=== PATIENT | female | born 1980 | race American Indian/Alaskan Native ===

== ENCOUNTER 2017-07-09 19:27 | Emergency (ER) | payer SELFPAY ==
[2017-07-09 19:47] VITALS: BP 165/99
--- NOTE | 2017-07-09 22:32 | Emergency Department Report ---
ED ENT HPI - General Chief complaint: Eye Problems Stated complaint: EYE SENSITIVE TO LIGHT/CANT HEAR Time Seen by Provider: 07/09/17 22:27 Source: patient Mode of arrival: Ambulatory Limitations: No Limitations - History of Present Illness Initial comments: 37-year-old female past medical history none presents with complaint of bilateral eye redness or some right than left. Some photophobia. Also states she has right-sided earache and has foreign body sensation in right ear. This has been going on for 1 month. I redness has been ongoing for 1 week. Some mucopurulent drainage from eyes and crusting in the mornings as per patient. Denies any direct trauma to his state is started on left than once her right eye and is currently worsening right eye. Burning itching sensation. Patient has been using Visine with minimal relief of her symptoms. Denies any cough fever chills nausea or vomiting. Denies any headache. Patient is awake alert and oriented 3 MD complaint: ear pain (right-sided earache for 1 month) Onset/Timin -: week(s) Location: R ear Severity: mild Severity scale (0 -10): 2 Quality: aching, dull Consistency: intermittent Improves with: none Worsens with: none - Related Data Previous Rx's Medication Instructions Recorded Last Taken Type Amoxicillin/Potassium Clav 1 each PO BID #14 tablet 07/09/17 Unknown Rx [Augmentin 875-125 Tablet] Ibuprofen [Motrin] 800 mg PO Q8HR PRN #20 tablet 07/09/17 Unknown Rx Ofloxacin 0.3% [Floxin Otic] 10 drops OT QDAY #1 bottle 07/09/17 Unknown Rx Tobramycin 0.3% [Tobrex] 1 drop OU Q4H #1 bottle 07/09/17 Unknown Rx Allergies Allergy/AdvReac Type Severity Reaction Status Date / Time No Known Allergies Allergy Unverified 07/09/17 19:45 ED Dental HPI - General Chief complaint: Eye Problems Stated complaint: EYE SENSITIVE TO LIGHT/CANT HEAR Time Seen by Provider: 07/09/17 22:27 Source: patient Mode of arrival: Ambulatory Limitations: No Limitations - Related Data Previous Rx's Medication Instructions Recorded Last Taken Type Amoxicillin/Potassium Clav 1 each PO BID #14 tablet 07/09/17 Unknown Rx [Augmentin 875-125 Tablet] Ibuprofen [Motrin] 800 mg PO Q8HR PRN #20 tablet 07/09/17 Unknown Rx Ofloxacin 0.3% [Floxin Otic] 10 drops OT QDAY #1 bottle 07/09/17 Unknown Rx Tobramycin 0.3% [Tobrex] 1 drop OU Q4H #1 bottle 07/09/17 Unknown Rx Allergies Allergy/AdvReac Type Severity Reaction Status Date / Time No Known Allergies Allergy Unverified 07/09/17 19:45 ED Review of Systems ROS: Stated complaint: EYE SENSITIVE TO LIGHT/CANT HEAR Other details as noted in HPI Constitutional: denies: chills, fever Eyes: eye pain, eye discharge. denies: vision change ENT: ear pain. denies: throat pain Respiratory: denies: cough, shortness of breath, wheezing Cardiovascular: denies: chest pain, palpitations Endocrine: no symptoms reported Gastrointestinal: denies: abdominal pain, nausea, diarrhea Genitourinary: denies: urgency, dysuria, discharge Musculoskeletal: denies: back pain, joint swelling, arthralgia Skin: denies: rash, lesions Neurological: denies: headache, weakness, paresthesias Psychiatric: denies: anxiety, depression Hematological/Lymphatic: denies: easy bleeding, easy bruising ED Past Medical Hx - Past Medical History Hx Hypertension: Yes - Surgical History Additional Surgical History: Hernia repair, C/S - Medications Home Medications: Home Medications Medication Instructions Recorded Confirmed Last Taken Type Amoxicillin/Potassium Clav 1 each PO BID #14 tablet 07/09/17 Unknown Rx [Augmentin 875-125 Tablet] Ibuprofen [Motrin] 800 mg PO Q8HR PRN #20 tablet 07/09/17 Unknown Rx Ofloxacin 0.3% [Floxin Otic] 10 drops OT QDAY #1 bottle 07/09/17 Unknown Rx Tobramycin 0.3% [Tobrex] 1 drop OU Q4H #1 bottle 07/09/17 Unknown Rx ED Physical Exam - General Limitations: No Limitations General appearance: alert, in no apparent distress - Head Head exam: Present: atraumatic, normocephalic - Eye Eye exam: Present: normal appearance, PERRL, EOMI Pupils: Present: normal accommodation - ENT ENT exam: Present: mucous membranes moist - Expanded ENT Exam Expanded TM/Canal exam: Erythema: Right TM, Bulging: Right TM (right tympanic membrane visible some surrounding erythema and bulging no visible tear and tympanic membrane. No mastoid tenderness on exam), Foreign Body: Right TM (earring stud lodged in right ear canal) - Neck Neck exam: Present: normal inspection - Respiratory Respiratory exam: Present: normal lung sounds bilaterally. Absent: respiratory distress - Cardiovascular Cardiovascular Exam: Present: regular rate, normal rhythm. Absent: systolic murmur, diastolic murmur, rubs, gallop - GI/Abdominal GI/Abdominal exam: Present: soft, normal bowel sounds - Extremities Exam Extremities exam: Present: normal inspection - Back Exam Back exam: Present: normal inspection - Neurological Exam Neurological exam: Present: alert, oriented X3, CN II-XII intact, normal gait - Psychiatric Psychiatric exam: Present: normal affect, normal mood - Skin Skin exam: Present: warm, dry, intact, normal color. Absent: rash ED Course Vital Signs 07/09/17 19:45 Temperature 98.4 F Pulse Rate 102 H Respiratory 18 Rate Blood Pressure 165/99 O2 Sat by Pulse 100 Oximetry - Foreign Body Removal Ear Location: ear canal (R) Foreign Body Suspected: other (earring stud) Foreign Body Removed: yes (earring stud fully removed) Tympanic Membrane Intact: Yes (no perforations of tympanic membrane) Patient Tolerated Procedure: well Complications: none (procedure tolerated well no pain no bleeding) ED Medical Decision Making - Medical Decision Making A/P: Foreign body removal right ear, conjunctivitis 1- tobramycin drops to affected eye(s), ofloxacin to right ear 2-course of Augmentin 7 days. I extracted full intact metal earring stud. No visible perforation to the tympanic membrane but there is surrounding erythema in the ear canal. No clinical signs of mastoiditis on exam, no mastoid erythema swelling or tenderness 3-Motrin when necessary 4-advised patient to return to the ED for any fevers chills difficulty hearing, drainage from ear nausea or vomiting. Critical care attestation.: If time is entered above; I have spent that time in minutes in the direct care of this critically ill patient, excluding procedure time. ED Disposition Clinical Impression: Foreign body in right ear Qualifiers: Encounter type: initial encounter Qualified Code(s): T16.1XXA - Foreign body in right ear, initial encounter Conjunctivitis Qualifiers: Conjunctivitis type: acute Acute conjunctivitis type: unspecified Laterality: bilateral Qualified Code(s): H10.33 - Unspecified acute conjunctivitis, bilateral Disposition: DC-01 TO HOME OR SELFCARE Is pt being admited?: No Does the pt Need Aspirin: No Condition: Stable Instructions: Conjunctivitis (ED), Ear Foreign Body (ED) Prescriptions: Amoxicillin/Potassium Clav [Augmentin 875-125 Tablet] 1 each PO BID #14 tablet Ibuprofen [Motrin] 800 mg PO Q8HR PRN #20 tablet PRN Reason: Pain Ofloxacin 0.3% [Floxin Otic] 10 drops OT QDAY #1 bottle Tobramycin 0.3% [Tobrex] 1 drop OU Q4H #1 bottle Referrals: [facility] [Provider Group] - 3-[address] [facility] [Outside] - 3-5 Days NEHA GONZALEZ MD [Staff Physician] - 3-5 Days Forms: Accompanied Note, Work/School Release Form(ED) Time of Disposition: 22:33
== END 2017-07-09 22:57 | disposition home or self-care (01) ==
LOC: ED 19:27
DX: T16.1XXA Foreign body in right ear, initial encounter (principal); H10.33 Unspecified acute conjunctivitis, bilateral; I10 Essential (primary) hypertension; X58.XXXA Exposure to other specified factors, initial encounter; Y93.89 Activity, other specified; Y99.8 Other external cause status; Y92.89 Other specified places as the place of occurrence of the external cause

== ENCOUNTER 2018-07-23 18:28 | Emergency (ER) | payer OTHER ==
[2018-07-23] MEDS ORDERED: ATROVENT IH ONE (19:05)
[2018-07-23] MEDS ORDERED: PROVENTIL IH ONE ×4 (19:05→21:34)
--- NOTE | 2018-07-23 19:05 | Emergency Department Report ---
Chief Complaint: Dyspnea/Respdistress Stated Complaint: KRISTEN/ASTHMA Time Seen by Provider: 07/23/18 19:03 - HPI History of Present Illness: pt has a hx of asthma has not had inhaler in 2-3 months due to lack of insurance exacerbation started last night dry cough SOB wheezing no fever (+) smoker MSE screening note: Focused history and physical exam performed. Due to findings the following was ordered: nebulizer tx, dexamethasone, CXR ED Disposition for MSE Condition: Stable
[2018-07-23] MEDS ORDERED: DECADRON IV ONE (19:06)
[2018-07-23] MEDS ORDERED: DUONEB *Not for PRN Use IH ONE ×2 (20:25→21:17)
[2018-07-23] MEDS ORDERED: XOPENEX IH ONE (20:57)
[2018-07-23] MEDS ORDERED: CATAPRES PO ONE (20:57)
[2018-07-23] MEDS ORDERED: APRESOLINE IV ONE (21:07)
[2018-07-23] MEDS ORDERED: SOLU-Medrol IV ONE (21:07)
[2018-07-23] MEDS ORDERED: NACL 0.9% 1000 ML 1,000 ML IV ONE (21:08)
--- NOTE | 2018-07-23 21:10 | Emergency Department Report ---
HPI - General Chief Complaint: Dyspnea/Respdistress Time Seen by Provider: 07/23/18 19:03 - HPI HPI: 38-year-old -[place] female presents to the emergency department with complaint of shortness of breath, wheezing, dry cough that she feels is an a sthma exacerbation. This is been going on since last night. She does not have any albuterol inhaler or nebulizer treatments. She also has a history of hypertension and does present with elevated blood pressure. She admits to medication noncompliance. She does not have a primary care physician. She is a tobacco smoker but denies any illicit drug use. No recent travel or sick contacts at home. ED Past Medical Hx - Past Medical History Hx Hypertension: Yes Hx Asthma: Yes - Surgical History Additional Surgical History: Hernia repair, C/S - Social History Smoking Status: Current Every Day Smoker Substance Use Type: Alcohol, Marijuana - Medications Home Medications: Home Medications Medication Instructions Recorded Confirmed Last Taken Type Amoxicillin/Potassium Clav 1 each PO BID #14 tablet 07/09/17 Unknown Rx [Augmentin 875-125 Tablet] Ibuprofen [Motrin] 800 mg PO Q8HR PRN #20 tablet 07/09/17 Unknown Rx Ofloxacin 0.3% [Floxin Otic] 10 drops OT QDAY #1 bottle 07/09/17 Unknown Rx Tobramycin 0.3% [Tobrex] 1 drop OU Q4H #1 bottle 07/09/17 Unknown Rx ALBUTEROL Inhaler (OR & NICU) 2 puff IH QID PRN #1 inhalation 07/23/18 Unknown Rx [ProAir HFA Inhaler] Amlodipine Besylate [Norvasc] 10 mg PO QDAY #30 tablet 07/23/18 Unknown Rx predniSONE [Deltasone] 20 mg PO BID #10 tab 07/23/18 Unknown Rx ED Review of Systems ROS: Stated complaint: KRISTEN/ASTHMA Other details as noted in HPI Comment: All other systems reviewed and negative Constitutional: denies: chills, fever Eyes: denies: eye pain, vision change ENT: denies: ear pain, throat pain Respiratory: cough, shortness of breath, wheezing Cardiovascular: denies: palpitations, edema Gastrointestinal: denies: abdominal pain, vomiting Genitourinary: denies: dysuria, frequency Musculoskeletal: denies: back pain, arthralgia Skin: denies: rash, lesions Neurological: denies: headache, weakness Physical Exam - Physical Exam Vital Signs: Vital Signs 07/23/18 19:03 Temperature 98.4 F Pulse Rate 116 H Respiratory 18 Rate Blood Pressure 186/121 O2 Sat by Pulse 95 Oximetry Physical Exam: GENERAL: The patient is well-developed well-nourished. HEENT: Normocephalic. Atraumatic. Patient has moist mucous membranes. EYES: Extraocular motions are intact. NECK: Supple. Trachea is midline. CHEST/LUNGS: Mild to moderate wheezing throughout the chest. There is some mild tachypnea but no accessory muscle use. There is no respiratory distress noted. HEART/CARDIOVASCULAR: Regular. There is mild tachycardia. There is no obvious murmur. ABDOMEN: Abdomen is soft, nontender. Patient has normal bowel sounds. There is no abdominal distention. SKIN: Skin is warm and dry. NEURO: The patient is awake, alert, and oriented. The patient is cooperative. The patient has no focal neurologic deficits. The patient has normal speech. MUSCULOSKELETAL: There is no tenderness or deformity. There is no evidence of acute injury. ED Course Vital Signs 07/23/18 19:03 Temperature 98.4 F Pulse Rate 116 H Respiratory 18 Rate Blood Pressure 186/121 O2 Sat by Pulse 95 Oximetry ED Medical Decision Making - Radiology Data Radiology results: image reviewed interpreted by me: Chest x-ray does not show any pneumothorax, pleural effusion, pneumonia or obvious focal consolidation. - Medical Decision Making This patient presents to the emergency department with a 2 day history of some wheezing, shortness of breath and a dry cough that she believes is an asthma exacerbation. A chest x-ray was done that does not show any pleural effusions, pneumonia, pneumothorax, consolidation, or any other acute process. Vital signs stable. The course including being afebrile. She has a mild tachycardia but has received multiple breathing treatments in the emergency department. She was reevaluated after getting the breathing treatments, steroids and her bronchospasm has almost completely resolved. The patient is very low on the well's score criteria. She has no lower extremity swelling, any recent travel or immobility. There is still just some mild expiratory wheezing but no signs of any respiratory distress. Patient says she is feeling greatly improved. The patient also presented with some elevated blood pressure. It came down with a dose of hydralazine and a Catapres. We discussed tobacco cessation. We discussed staying away from foods that are high in salt and caffeinated products. The patient will be started on Norvasc and will keep a blood pressure log. She also has been given a prescription for prednisone and an albuterol inhaler. She will return to the ER with any worsening of her symptoms or any acute distress. - Differential Diagnosis asthma, bronchitis, pneumonia, CHF Critical care attestation.: If time is entered above; I have spent that time in minutes in the direct care of this critically ill patient, excluding procedure time. ED Disposition Clinical Impression: Bronchospasm Asthma exacerbation Qualifiers: Asthma severity: unspecified severity Asthma persistence: unspecified Qualified Code(s): J45.901 - Unspecified asthma with (acute) exacerbation Hypertension Qualifiers: Hypertension type: essential hypertension Qualified Code(s): I10 - Essential (primary) hypertension Disposition: TO HOME OR SELFCARE Is pt being admited?: No Condition: Stable Instructions: Asthma (ED), Hypertension (ED) Additional Instructions: Please follow up with a primary care physician in the next few days. Return to the emergency Department with any worsening of your symptoms or any acute distress. Please try and quit smoking. Try and stay away from foods that are high in salt and caffeinated products to help with her blood pressure. Keep a blood pressure log. I'm starting him on a blood pressure medication, Norvasc/amlodipine. This medication is taken once per day, usually in the morning. Prescriptions: predniSONE [Deltasone] 20 mg PO BID #10 tab Amlodipine Besylate [Norvasc] 10 mg PO QDAY #30 tablet ALBUTEROL Inhaler (OR & NICU) [ProAir HFA Inhaler] 2 puff IH QID PRN #1 inhalation PRN Reason: Shortness Of Breath Referrals: [facility] [Outside] - 2-3 Days Forms: Accompanied Note, Work/School Release Form(ED) Time of Disposition: 22:33
--- NOTE | 2018-07-23 21:19 | XRay Report ---
PROCEDURE: XR CHEST ROUTINE 2V TECHNIQUE: PA and lateral chest radiographs were obtained. HISTORY: cough, asthma COMPARISONS: None. FINDINGS: Heart: Normal. Mediastinum/Vessels: Normal. Lungs/Pleural space: Normal. Bony thorax: No acute osseous abnormality. IMPRESSION: Normal examination. This document is electronically signed by Richard Verdin MD., July 23 2018 09:17:33 PM ET
[2018-07-23 22:07] VITALS: BP 124/66
== END 2018-07-23 22:45 | disposition home or self-care (01) ==
LOC: ED 18:28
DX: J45.901 Unspecified asthma with (acute) exacerbation (principal); I10 Essential (primary) hypertension; F17.200 Nicotine dependence, unspecified, uncomplicated
CPT/HCPCS: 71046; 94640; 96374; 96375; 99284; J0360; J1100; J2930